=== PATIENT | female | born 1960 | race Caucasian/White ===

== ENCOUNTER → 2017-11-20 | Outpatient (CLI) | payer BC ==
--- NOTE | 2017-11-20 10:41 | BD ---
EXAMINATION TYPE: Axial Bone Density DATE OF EXAM: 11/20/2017 COMPARISON: 06/19/2013 CLINICAL HISTORY: Postmenopausal female. Osteoporosis screening. Height: 65.7 IN Weight: 127 LBS FRAX RISK QUESTIONS: Secondary Osteoporosis: 3. Menopause before 45: PARTIAL HYST AGE 27 RISK FACTORS HISTORY OF: Active: YES Postmenopausal woman: PARTIAL HYSTERECTOMY AGE 47 Take estrogen and/or progesterone medications: YES How long: ESTROGEN/PROGESTERONE 14 YEARS MEDICATIONS: Additional Medications: VIT D, ESTRADIAL, EXAM MEASUREMENTS: Bone mineral densitometry was performed using the [employer] System. Bone mineral density as measured about the Lumbar spine is: ----- L1-L4(G/cm2): 1.115 T Score Values are as follows: ----- L2: -0.4 ----- L3: -0.6 ----- L4: -0.6 ----- L1-L4: -0.5 Bone mineral density has: Decreased -1.0% since study of: 06/19/2013 Bone mineral density about the R hip (g/cm2): 0.991 Bone mineral density about the L hip (g/cm2): 1.037 T Score values are as follows: -----R Neck: -0.3 -----L Neck: 0.0 -----R Total: -0.1 -----L Total: 0.4 Bone mineral density has: Decreased -3.0% since study of: 06/19/2013 IMPRESSION: Normal (Values between +1 and -1 indicate normal bone mass). Consider repeating this study in 5 year s or sooner if there is some new clinical indication. NOTE: T-SCORE=SD OF THE YOUNG ADULT MEAN.
--- NOTE | 2017-11-22 07:54 | MM ---
Reason for exam: screening (asymptomatic). Last mammogram was performed 2 years and 10 months ago. History: Patient is postmenopausal. Took hormonal contraceptives for 1 year 6 months beginning at age 46. Taking estrogen beginning at age 48. Physical Findings: A clinical breast exam by your physician is recommended on an annual basis and results should be correlated with mammographic findings. MG Screening Mammo w CAD Bilateral CC and MLO view(s) were taken. Prior study comparison: January 20, 2015, bilateral MG screening mammo w CAD. December 10, 2013, left breast MG diagnostic mammo LT w CAD. The breast tissue is heterogeneously dense. This may lower the sensitivity of mammography. New right upper outer quadrant focal asymmetry middle depth. ASSESSMENT: Incomplete: need additional imaging evaluation, BI-RAD 0 RECOMMENDATION: Special view mammogram of the right breast. Ultrasound of the left breast. (left palpable per patient history) [facility] will attempt to contact patient to return for supplemental views and ultrasound.
== END | disposition home or self-care (01) ==
LOC: RADBDWWP 07:25
PROVIDERS: ATTEND Obstetrics & Gynecology
DX: Z12.31 Encounter for screening mammogram for malignant neoplasm of breast (principal); Z13.820 Encounter for screening for osteoporosis
CPT/HCPCS: 77067; 77080

== ENCOUNTER → 2017-12-10 | Outpatient (CLI) | payer BC ==
--- NOTE | 2017-12-10 11:31 | MM ---
Reason for exam: additional evaluation requested from abnormal screening. Last mammogram was performed 1 month ago. History: Patient is postmenopausal. Took hormonal contraceptives for 1 year 6 months beginning at age 46. Taking estrogen beginning at age 48. Physical Findings: Nurse Summary: 1 x 1cm nodule in the left breast at 4 o'clock (nurse ts). MG 3D Work Up W/Cad RT Spot compression CC, spot compression MLO, and ML view(s) were taken of the right breast. Prior study comparison: November 20, 2017, bilateral MG screening mammo w CAD. January 20, 2015, bilateral MG screening mammo w CAD. The breast tissue is heterogeneously dense. This may lower the sensitivity of mammography. The questioned focal asymmetry disperses on additional views. These results were verbally communicated with the patient and result sheet given to the patient on 12/10/17. ASSESSMENT: Incomplete: need additional imaging evaluation, BI-RAD 0 RECOMMENDATION: Ultrasound. (left breast, for patient palpated far peripheral abnormality and lower outer quadrant nurse palpated abnormality)
--- NOTE | 2017-12-10 11:35 | USB ---
Reason for exam: additional evaluation requested from abnormal screening. History: Patient is postmenopausal. Took hormonal contraceptives for 1 year 6 months beginning at age 46. Taking estrogen beginning at age 48. US Breast Workup Limited LT Left limited breast ultrasound including focal area of concern, retroareolar and axilla demonstrates a 0.4 x 0.3 x 0.7cm oval, cystic cluster versus complex cyst at 4 o'clock at the nurse palpated site. 6 month follow up recommended. Nothing seen where patient sees lump at 4 o'clock zone C. Prominent rib noted. Scanned lower outer quadrant, 3-6 o'clock. These results were verbally communicated with the patient and result sheet given to the patient on 12/10/17. ASSESSMENT: Probably benign, BI-RAD 3 RECOMMENDATION: Ultrasound of the left breast in 6 months.
== END | disposition home or self-care (01) ==
LOC: RADMAMWWP 09:01
PROVIDERS: ATTEND Obstetrics & Gynecology
DX: R92.8 Other abnormal and inconclusive findings on diagnostic imaging of breast (principal)
CPT/HCPCS: 77061; 77065

== ENCOUNTER → 2018-06-21 | Outpatient (CLI) | payer BC ==
--- NOTE | 2018-06-24 08:12 | USB ---
Reason for exam: follow-up at short interval from prior study. History: Patient is postmenopausal. Took hormonal contraceptives for 1 year 6 months beginning at age 46. Taking estrogen beginning at age 48. Physical Findings: Nurse Summary: left breast palpable 4 o'clock 0.5 x 0.5cm, movable, tender (nurse ts). US Breast LT Left complete breast ultrasound includes all four quadrants, the retroareolar region and axilla. Finding demonstrates a 0.6 x 0.6 x 0.3cm oval, complex lesion at 4 o'clock, cyst versus cyst cluster, previously 7 x 4 x 3mm, relatively stable, additional follow up recommended, duct ectasia at 5 o'clock, a 0.3 x 0.3 x 0.2cm oval, cystic, benign lesion at 7 o'clock and a 0.2 x 0.3 x 0.2cm oval, cystic, benign lesion at 9 o'clock. These results were verbally communicated with the patient and result sheet given to the patient on 06/21/18. ASSESSMENT: Probably benign, BI-RAD 3 RECOMMENDATION: Follow-up diagnostic mammogram of both breasts in 6 months. Back on schedule for November 2018. Ultrasound of the left breast in 6 months. (attention 4 o'clock)
== END | disposition home or self-care (01) ==
LOC: RADUSWWP 15:41
PROVIDERS: ATTEND Internal Medicine Geriatric Medicine
DX: N64.9 Disorder of breast, unspecified (principal)

== ENCOUNTER → 2018-12-16 | Outpatient (CLI) | payer BC ==
--- NOTE | 2018-12-17 08:31 | MM ---
Reason for exam: additional evaluation requested from prior study. Last mammogram was performed 1 year ago. History: Patient is postmenopausal. Took hormonal contraceptives for 1 year 6 months beginning at age 46. Taking estrogen for 15 years beginning at age 43. Physical Findings: Nurse Summary: There is a 0.5 cm dominant mass at 4 o'clock in the left breast. MG 3D Diag Mammo W/Cad UMER Bilateral CC and MLO view(s) were taken. Prior study comparison: December 10, 2017, right breast MG 3d work up w/cad RT. November 20, 2017, bilateral MG screening mammo w CAD. The breast tissue is heterogeneously dense. This may lower the sensitivity of mammography. No discrete abnormality. No significant new findings when compared with prior studies. ASSESSMENT: Incomplete: need additional imaging evaluation, BI-RAD 0 RECOMMENDATION: Ultrasound of the left breast.
--- NOTE | 2018-12-17 08:38 | USB ---
Reason for exam: additional evaluation requested from prior study. History: Patient is postmenopausal. Took hormonal contraceptives for 1 year 6 months beginning at age 46. Taking estrogen for 15 years beginning at age 43. US Breast LT Left complete breast ultrasound includes all four quadrants, the retroareolar region and axilla. Finding demonstrates a 0.6 x 0.3 x 0.4 cm solid hypoechoic lesion at 4 o'clock, and a 0.2 x 0.2 x 0.2 cm cystic lesion at 9 o'clock. No significant changes in finding. ASSESSMENT: Benign, BI-RAD 2 RECOMMENDATION: Routine screening mammogram of both breasts in 1 year.
== END | disposition home or self-care (01) ==
LOC: RADMAMWWP 07:00
PROVIDERS: ATTEND Internal Medicine Geriatric Medicine
DX: N63.20 Unspecified lump in the left breast, unspecified quadrant (principal); R92.2 Inconclusive mammogram
CPT/HCPCS: 77062; 77066

== ENCOUNTER → 2019-01-22 | Outpatient (CLI) | payer BC ==
--- NOTE | 2019-01-22 15:57 | XR ---
EXAMINATION TYPE: XR lumbar spine 2 or 3V DATE OF EXAM: 01/22/2019 COMPARISON: None HISTORY: Sciatica TECHNIQUE: 3 view lumbar spine FINDINGS: There are 5 lumbar-type vertebral bodies. Pedicles are intact. Disc heights are preserved. Vertebral body heights are preserved. Alignment is mildly scoliotic with convexity to the left. IMPRESSION: 1. No acute osseous abnormality lumbar spine. 2. Mild scoliosis which can be positional.
== END | disposition home or self-care (01) ==
LOC: RADXRMAIN 14:57
PROVIDERS: ATTEND Internal Medicine Geriatric Medicine
DX: M41.86 Other forms of scoliosis, lumbar region (principal)
CPT/HCPCS: 72100

== ENCOUNTER 2019-06-14 18:20 | Emergency (ER) | payer BC ==
[2019-06-14 18:30] VITALS: RESP 18
[2019-06-14] MEDS ORDERED: METOCLOPRAMIDE 5 MG/ML 2 ML VIAL IVP STA (18:38)
[2019-06-14] MEDS ORDERED: KETOROLAC 30 MG/ML 1 ML VIAL IVP STA (18:38)
[2019-06-14] MEDS ORDERED: SODIUM CHLORIDE 0.9% 1,000 ML IV ONE (18:38)
[2019-06-14] MEDS ORDERED: diphenhydrAMINE 50 MG/ML 1 ML VIAL IVP STA (18:38)
--- NOTE | 2019-06-14 18:41 | ED ---
Headache HPI - General Chief Complaint: Headache Stated Complaint: Migraine Time Seen by Provider: 06/14/19 18:30 Mode of arrival: ambulatory Limitations: no limitations - History of Present Illness Initial Comments: 59-year-old female patient presents to the emergency department today for evaluation of migraine headache. Patient has history of migraines and symptoms are consistent with her usual migraine pattern. She is reporting generalized headache, light sensitivity, sound sensitivity, nausea, and vomiting. Patient states headache started around 0800 this morning. States she doesn't feel like she took her usual medications in time to control the headache. She denies any new symptoms with this headache. Denies this being the worse headache of her life. Denies any recent head injury. Patient denies any recent rash, fever, chills, shortness breath, chest pain, diarrhea, constipation, back pain, numbness, tingling, dizziness, weakness, hematuria, dysuria, urinary urgency, urinary frequency, or any other complaints. - Related Data Allergies Allergy/AdvReac Type Severity Reaction Status Date / Time No Known Allergies Allergy Verified 12/16/18 07:40 Review of Systems ROS Statement: Those systems with pertinent positive or pertinent negative responses have been documented in the HPI. ROS Other: All systems not noted in ROS Statement are negative. Past Medical History Past Medical History: No Reported History Additional Past Medical History / Comment(s): migraines History of Any Multi-Drug Resistant Organisms: None Reported Past Surgical History: No Surgical Hx Reported Past Psychological History: No Psychological Hx Reported Smoking Status: Never smoker Past Alcohol Use History: Rare Past Drug Use History: None Reported General Exam Limitations: no limitations General appearance: alert, in no apparent distress, other (This is a well- developed, well-nourished adult female patient in mild distress related to pain. Vital signs upon presentation are temperature 97.6F, pulse 87, respirations 18, blood pressure 150/96, pulse ox 100% on room air.) Eye exam: Present: normal appearance, PERRL, EOMI. Absent: scleral icterus, conjunctival injection, periorbital swelling ENT exam: Present: normal exam, normal oropharynx, mucous membranes moist Respiratory exam: Present: normal lung sounds bilaterally. Absent: respiratory distress, wheezes, rales, rhonchi, stridor Cardiovascular Exam: Present: regular rate, normal rhythm, normal heart sounds. Absent: systolic murmur, diastolic murmur, rubs, gallop, clicks GI/Abdominal exam: Present: soft, normal bowel sounds. Absent: distended, tenderness, guarding, rebound, rigid Neurological exam: Present: alert, oriented X3, CN II-XII intact, other (Strength in all 4 extremities is 5/5.) Psychiatric exam: Present: normal affect, normal mood Skin exam: Present: warm, dry, intact, normal color. Absent: rash Course Vital Signs 06/14/19 06/14/19 18:28 20:32 Temperature 97.6 F 98.0 F Pulse Rate 87 80 Respiratory 18 18 Rate Blood Pressure 150/96 131/80 O2 Sat by Pulse 100 100 Oximetry Medical Decision Making - Medical Decision Making 59-year-old female patient presents to the emergency department today for evaluation of migraine headache. Patient developed migraine this morning and her typical home meds did not help. Symptoms are typical for her usual migraine pattern. This is not the worst headache of her life. Physical examination is unremarkable. She is neurologically intact with no focal deficits. Patient is given IV fluids and medication here in the emergency department. Upon reevaluation she does report improvement of symptoms. She'll be discharged to follow up with her primary care physician for recheck in 1-2 days. Return parameters were discussed in detail. She verbalizes understanding and agrees with this plan Disposition Clinical Impression: Migraine headache Disposition: HOME SELF-CARE Condition: Good Instructions (If sedation given, give patient instructions): Migraine Headache (ED) Additional Instructions: Rest. Increase fluids. Follow up with your primary care physician for recheck in 1-2 days. Return to the emergency department immediately for any new, worsening, or concerning symptoms. Is patient prescribed a controlled substance at d/c from ED?: No Referrals: Dominguez Mcclellan MD [Primary Care Provider] - 1-2 days Time of Disposition: 20:21
[2019-06-14 20:41] VITALS: BP 131/80; PULSE 80; TEMP 98
== END 2019-06-14 20:32 | disposition home or self-care (01) ==
LOC: EC 18:20
DX: G43.909 Migraine, unspecified, not intractable, without status migrainosus (principal)
CPT/HCPCS: 99283; 96374; 96375 ×2; 96361; J1200; J2765; J1885

== ENCOUNTER → 2019-07-09 | Outpatient (CLI) | payer BC ==
--- NOTE | 2019-07-09 16:50 | XR ---
EXAMINATION TYPE: XR cervical spine comp DATE OF EXAM: 07/09/2019 COMPARISON: None HISTORY: 59-year-old female with cervicalgia TECHNIQUE: 5 views FINDINGS: Uncovertebral joint arthropathy lower cervical spine. Scattered facet arthropathy throughout. In the right, changes result in mild neuroforaminal narrowing at C6-C7 and C7-T1. On the left, changes result in possible moderate neural foraminal narrowing at C7-T1. No predental space widening or prevertebral soft tissue swelling. Alignment is maintained. Normal odo ntoid view. IMPRESSION: Scattered facet and uncovertebral joint arthropathy causing variable mild neuroforaminal narrowing lo wer cervical spine, possible moderate narrowing on the left at C7-T1.
== END | disposition home or self-care (01) ==
LOC: RADXRMAIN 15:20
PROVIDERS: ATTEND Internal Medicine Geriatric Medicine
DX: M48.02 Spinal stenosis, cervical region (principal); M46.92 Unspecified inflammatory spondylopathy, cervical region
CPT/HCPCS: 72050

== ENCOUNTER → 2019-07-28 | Outpatient (CLI) | payer BC ==
--- NOTE | 2019-07-28 16:34 | MR ---
MRI CERVICAL SPINE: CLINICAL HISTORY: Spinal stenosis per order. Headache with neck pain and grinding in neck for 3 to 4 months with limited range of motion. TECHNIQUE: Multiplanar, multisequence imaging of the cervical spine is performed without and with IV contrast, 6 cc of gadolinium was given intravenously. COMPARISON: Cervical spine x-ray July 09, 2019.. FINDINGS: Sagittal images of the cervical spine show the craniocervical junction to appear within nor mal limits. The cervical and upper thoracic spinal cord is normal in course, caliber, and signal. Sl ight grade 1 retrolisthesis C4 on C5 and C5 on C6 redemonstrated. The vertebral body and intraverteb ral disk heights are thought to remain within normal limits. The bone marrow signal intensity is wit hin normal limits. No suspicious postcontrast enhancement. Axial images show the C2-C3 and C3-C4 level to appear within normal limits. Axial images at C4-C5 level shows spondylolisthesis and tiny central disc protrusion mildly effacing the anterior thecal sac, bilateral neural foramina are patent. Axial images at C5-C6 level shows some uncovertebral such as arm changes contributing to mild right g reater than left bilateral neural foraminal narrowing. Axial images at C6-C7 and C7-T1 levels are thought within normal limits. IMPRESSION: Some subtle spondylolisthesis and fairly mild multilevel degenerative changes in the mid cervical spine as detailed above.
== END | disposition home or self-care (01) ==
LOC: RADMRIMAIN 06:36
PROVIDERS: ATTEND Internal Medicine Geriatric Medicine
DX: M43.12 Spondylolisthesis, cervical region (principal); M47.812 Spondylosis without myelopathy or radiculopathy, cervical region
CPT/HCPCS: 72156; A9585

== ENCOUNTER → 2020-11-02 | Outpatient (CLI) | payer BC ==
--- NOTE | 2020-11-04 09:30 | MM ---
Reason for exam: screening (asymptomatic). Last mammogram was performed 1 year and 11 months ago. History: Patient is postmenopausal. Took hormonal contraceptives for 1 year 6 months beginning at age 46. Taking estrogen for 15 years beginning at age 43. Physical Findings: A clinical breast exam by your physician is recommended on an annual basis and results should be correlated with mammographic findings. MG 3D Screening Mammo W/Cad Bilateral CC and MLO view(s) were taken. Prior study comparison: December 16, 2018, bilateral MG 3d diag mammo w/cad [facility]. December 10, 2017, right breast MG 3d work up w/cad RT. The breast tissue is heterogeneously dense. This may lower the sensitivity of mammography. ASSESSMENT: Negative, BI-RAD 1 RECOMMENDATION: Routine screening mammogram of both breasts in 1 year.
== END | disposition home or self-care (01) ==
LOC: RADMAMWWP 16:01
PROVIDERS: ATTEND Internal Medicine Geriatric Medicine
DX: Z12.31 Encounter for screening mammogram for malignant neoplasm of breast (principal)
CPT/HCPCS: 77063; 77067

== ENCOUNTER → 2023-02-08 | Outpatient (CLI) | payer BC ==
--- NOTE | 2023-02-09 08:47 | MM ---
Reason for Exam: Screening (asymptomatic). Last mammogram was performed 2 year(s) and 3 month(s) ago. Patient History: Menarche at age 10. First Full-Term at age 18. Hysterectomy at age 27. Postmenopausal. Currently using Estrogen, beginning at age 43 for 15 years. Hormonal Contraceptives, starting at age 46 for 1 year, 6 months. Risk Values: Janay 5 year model risk: 1.2%. NCI Lifetime model risk: 5.3%. Prior Study Comparison: 12/10/2017 Right Diagnostic Mammogram, [facility]. 12/16/2018 Bilateral Diagnostic Mammogram, [facility]. 11/02/2020 Bilateral Screening Mammogram, [facility]. Tissue Density: The breast tissue is heterogeneously dense. This may lower the sensitivity of mammography. Findings: Analyzed By CAD. Nodular density central left breast 4.5 cm from the nipple. Additional views recommended. Right breast is free of nodule or mass. No suspicious microcalcifications within either breast. Overall Assessment: Incomplete: need additional imaging evaluation, BI-RAD 0 Management: Diagnostic Mammogram of the left breast. . Patient should continue monthly self-breast exams. A clinical breast exam by your physician is recommended on an annual basis. This exam should not preclude additional follow-up of suspicious palpable abnormalities. Note on Janay scores and lifetime risk: 1. A Janay score greater than 3% is considered moderate risk. If this is the case, consider specialist referral to assess eligibility for a risk reducing agent. 2. If overall lifetime risk for the development of breast cancer is 20% or higher, the patient may qualify for future screening with alternating mammogram and breast MRI. Electronically signed and approved by: Oskar Tubbs M.D. Radiologis
== END | disposition home or self-care (01) ==
LOC: RADMAMWWP 08:03
PROVIDERS: ATTEND Internal Medicine Geriatric Medicine
DX: Z12.31 Encounter for screening mammogram for malignant neoplasm of breast (principal)
CPT/HCPCS: 77063; 77067

== ENCOUNTER → 2024-06-11 | Outpatient (CLI) | payer BC ==
--- NOTE | 2024-06-11 08:00 | MM ---
Reason for Exam: Screening (asymptomatic). Last mammogram was performed 1 year(s) and 4 month(s) ago. Patient History: Menarche at age 10. First Full-Term at age 18. Hysterectomy at age 27. Postmenopausal. Currently using Estrogen, beginning at age 43 for 15 years. Hormonal Contraceptives, starting at age 46 for 1 year, 6 months. Risk Values: Janay 5 year model risk: 1.3%. NCI Lifetime model risk: 5.0%. Prior Study Comparison: 11/02/2020 Bilateral Screening Mammogram, [facility]. 02/08/2023 Bilateral MG 3D screening mammo w/cad, [facility]. 02/15/2023 Left MG 3D work up w/cad , [facility]. Tissue Density: The breasts are heterogeneously dense, which may obscure small masses. Findings: Analyzed By CAD. There is a more rounded contour to asymmetric density medial subareolar right breast on the CC view. This may represent superimposition shadow but further evaluation recommended. Otherwise, no significant change. Overall Assessment: Incomplete: need additional imaging evaluation, BI-RAD 0 Management: Special View Mammogram of the right breast. Diagnostic Breast Ultrasound of the right breast. [facility] will attempt to contact patient to return for supplemental views and ultrasound if indicated. [facility], , 06/11/2024 7:57 AM. Electronically signed and approved by: Soledad Billy M.D. Radiologist
--- NOTE | 2024-06-11 12:51 | BD ---
EXAMINATION TYPE: Axial Bone Density DATE OF EXAM: 06/11/2024 CLINICAL HISTORY: 64 years old Female. ICD-10 CODE: M81.0 , Additional History: Height: 65.5" Weight: 132lbs FRAX RISK QUESTIONS: Alcohol (3 or more units per day): No Family History (Parent hip fracture): No Glucocorticoids (More than 3mos): No (Ex: prednisone, prednisolone, methylprednisolone, dexamethasone, and hydrocortisone). History of Fracture in Adulthood: No Secondary Osteoporosis: 1. Type 1 Diabetes: No 2. Hyperthyroidism: No 3. Menopause before 45: Yes 4. Malnutrition: No 5. Chronic liver disease: No Rheumatoid Arthritis: No Current Tobacco Use: No RISK FACTORS HISTORY OF: Hip Fracture (Right/Left): No Spine Fracture: No History of Wrist Fracture: No Surgery to Spine/Hip(right/left)/Wrist (right/left): No MEDICATIONS: Thyroid Medications: No Osteoporosis Medications: No EXAM MEASUREMENTS: Bone mineral densitometry was performed using the [employer] System. Bone mineral density as measured about the Lumbar spine is: ----- L1-L4(G/cm2): 1.096 T Score Values are as follows: ----- L1: -1.4 ----- L2: -0.9 ----- L3: -0.8 ----- L4: -0.1 ----- L1-L4: -0.7 Z Score Values are as follows: ----- L1: 0.3 ----- L2: 0.8 ----- L3: 1.0 ----- L4: 1.7 ----- L1-L4: 1.1 Bone mineral density has: decreased -1.7% since study of: 11/20/2017 Bone mineral density about the R hip (g/cm2): 1.004 Bone mineral density about the L hip (g/cm2): 0.965 T Score values are as follows: -----R Neck: -0.5 -----L Neck: -0.8 -----R Total: 0.0 -----L Total: -0.3 Z Score values are as follows: -----R Neck: 1.1 -----L Neck: 0.8 -----R Total: 1.3 -----L Total: 1.0 Bone mineral density has: decreased -4.0% since study of: 11/20/2017 FRAX%s: The graph provided illustrates a 7.0% chance for a major osteoporotic fx and a 0.5% chance fo r the hips probability for fx in 10 years time. IMPRESSION: Osteopenia (T Score between -2.5 and -1). There is slightly increased risk of fracture and the patient may be considered for treatment. Re-Screen 2-5 years. NOTE: T-SCORE=SD OF THE YOUNG ADULT MEAN. [facility], , 06/11/2024 12:49 PM
== END | disposition home or self-care (01) ==
LOC: RADMAMWWP 07:13
PROVIDERS: ATTEND Internal Medicine Geriatric Medicine
DX: Z12.31 Encounter for screening mammogram for malignant neoplasm of breast (principal); M81.0 Age-related osteoporosis without current pathological fracture; Z78.0 Asymptomatic menopausal state; R92.333 Mammographic heterogeneous density, bilateral breasts; M85.89 Other specified disorders of bone density and structure, multiple sites
CPT/HCPCS: 77063; 77067; 77080

== ENCOUNTER → 2024-07-16 | Outpatient (CLI) | payer BC ==
--- NOTE | 2024-07-16 08:30 | MM ---
Reason for Exam: Additional evaluation requested from abnormal screening. Last screening mammogram was performed 1 month(s) ago. Patient History: Menarche at age 10. First Full-Term at age 18. Hysterectomy at age 27. Postmenopausal. Currently using Estrogen, beginning at age 43 for 15 years. Hormonal Contraceptives, starting at age 46 for 1 year, 6 months. Risk Values: Janay 5 year model risk: 1.3%. NCI Lifetime model risk: 5.0%. Prior Study Comparison: 11/20/2017 Bilateral Screening Mammogram, [facility]. 02/08/2023 Bilateral MG 3D screening mammo w/cad, [facility]. 06/11/2024 Bilateral MG 3D screening mammo w/cad, [facility]. Tissue Density: Right: The breasts are heterogeneously dense, which may obscure small masses. Findings: Analyzed By CAD. Area of concern/asymmetry compresses out on spot compression imaging. No suspicious masses, calcifications or distortions. Overall Assessment: Benign, BI-RAD 2 Management: Screening Mammogram of both breasts in 1 year. Results were given to the patient verbally at the time of exam. Patient should continue monthly self-breast exams. A clinical breast exam by your physician is recommended on an annual basis. This exam should not preclude additional follow-up of suspicious palpable abnormalities. Note on Janay scores and lifetime risk: 1. A Janay score greater than 3% is considered moderate risk. If this is the case, consider specialist referral to assess eligibility for a risk reducing agent. 2. If overall lifetime risk for the development of breast cancer is 20% or higher, the patient may qualify for future screening with alternating mammogram and breast MRI. [facility], , 07/16/2024 8:26 AM. Electronically signed and approved by: Benson Acosta DO
== END | disposition home or self-care (01) ==
LOC: RADMAMWWP 08:02
PROVIDERS: ATTEND Internal Medicine Geriatric Medicine
DX: R92.8 Other abnormal and inconclusive findings on diagnostic imaging of breast (principal); R92.331 Mammographic heterogeneous density, right breast; Z78.0 Asymptomatic menopausal state; Z92.0 Personal history of contraception
CPT/HCPCS: 77061; 77065

== ENCOUNTER → 2024-10-07 | Outpatient (CLI) | payer BC ==
--- NOTE | 2024-10-07 11:20 | XR ---
EXAMINATION TYPE: XR chest 2V DATE OF EXAM: 10/07/2024 11:08 AM COMPARISON: None CLINICAL INDICATION: Female, 64 years old with history of J06.9 UPPER RESP INF, , TECHNIQUE: Frontal and lateral views FINDINGS: The cardiomediastinal silhouette, aorta, and pulmonary vasculature are within normal limits. Hyperinf lation may relate to depth of inspiration or underlying emphysema. Otherwise, lungs and pleural space s are clear. IMPRESSION: Hyperinflation may relate to depth of inspiration or underlying emphysema. Correlate for any smoking history. Otherwise, no acute cardiopulmonary process. [facility], Workstation: [id number], 10/07/2024 11:17 AM
== END | disposition home or self-care (01) ==
LOC: RADXRMAIN 10:46
PROVIDERS: ATTEND Internal Medicine Geriatric Medicine
DX: J06.9 Acute upper respiratory infection, unspecified (principal); J43.9 Emphysema, unspecified
CPT/HCPCS: 71046

== ENCOUNTER → 2024-12-15 | Outpatient (CLI) | payer BC ==
[2024-12-15 19:58] LABS: Basophils # (A) 0.03 X 10*3/uL (0.00-0.10); Basophils % (A) 0.6 %; Eosinophils # (A) 0.02 X 10*3/uL (0.04-0.35); Eosinophils % (A) 0.4 %; HCT 36.1 % (37.2-46.3); HGB 12.2 g/dL (12.0-15.0); Immature Grans, Automated 0.20 %; Lymphocytes # (A) 1.54 X 10*3/uL (0.90-5.00); Lymphocytes % (A) 32.2 %; MCH 30.3 pg (27.0-32.0); MCHC 33.8 g/dL (32.0-37.0); MCV 89.6 FL (80.0-97.0); Monocytes # (A) 0.37 X 10*3/uL (0.20-1.00); Monocytes % (A) 7.7 %; NRBC Per 100 WBC 0 X 10*3/uL (0.00-0.01); Neutrophils # (A) 2.82 X 10*3/uL (1.80-7.70); Neutrophils % (A) 58.9 %; Platelet Count 204 X 10*3/uL (140-440); RBC 4.03 X 10*6/uL (4.10-5.20); RDW 11.8 % (11.5-14.5); WBC 4.79 X 10*3/uL (4.50-10.00)
[2024-12-15 20:21] LABS: ALT 14 U/L (8-44); AST 25 U/L (13-35); Albumin 4.3 g/dL (3.8-4.9); Albumin/Globulin Ratio 2.87 Ratio (1.60-3.17); Alkaline Phosphatase 55 U/L (41-126); Anion Gap 11.30 mmol/L (4.00-12.00); BUN/Creat Ratio 15.00 Ratio (12.00-20.00); Blood Urea Nitrogen 13.5 mg/dL (9.0-27.0); Calcium 9.1 mg/dL (8.7-10.3); Carbon Dioxide 24.7 mmol/L (21.6-31.8); Chloride 99 mmol/L (96-109); Globulin 1.5 g/dL (1.6-3.3); Glucose 82 mg/dL (70-110); Potassium 4.0 mmol/L (3.5-5.5); Sodium 135 mmol/L (135-145); Total Protein 5.8 g/dL (6.2-8.2)
== END | disposition home or self-care (01) ==
LOC: LABWHC1 13:41
PROVIDERS: ATTEND Dermatology
DX: L93.0 Discoid lupus erythematosus (principal); L66.11 Classic lichen planopilaris
CPT/HCPCS: 36415; 80053; 85025